=== PATIENT | female | born 1945 | race Caucasian/White ===

== ENCOUNTER 2017-03-13 14:53 | Observation (INO) | payer MEDICARE, BC ==
--- NOTE | 2017-03-13 15:50 | EDM.PDOC ---
ED HPI GENERAL MEDICAL PROBLEM - General Chief Complaint: Cardiovascular Problem Stated Complaint: DIZZINESS,NAUSEA Time Seen by Provider: 03/13/17 15:00 Source of Information: Reports: Patient, Family History Limitations: Reports: No Limitations - History of Present Illness INITIAL COMMENTS - FREE TEXT/NARRATIVE: 71-year-old female who for the past 3 days has had generalized malaise, nausea and dyspnea with activity but no chest pain. She has had some intermittent upper abdominal discomfort. She went into the clinic today because of weakness, dizziness and nausea and was found to be in atrial fibrillation with a rapid ventricular response. She was then sent directly over the emergency room for further evaluation. Interestingly on arrival to the emergency room she was in sinus rhythm with occasional PVCs. She felt mildly dizzy, nauseous, but had no shortness of breath or chest pain. In EKG from the clinic was reviewed and indeed was atrial fibrillation with rapid ventricular response, she has no prior history of atrial fibrillation. Onset: Unknown/Unsure (Symptoms have been waxing and waning for several days) Location: Reports: Abdomen (Some slight upper abdominal discomfort) Severity: Moderate Associated Symptoms: Reports: Malaise, Other (Lightheaded and dizzy) Frontal Headache Pain Score (Numeric/FACES): 1 - Related Data Allergies Allergy/AdvReac Type Severity Reaction Status Date / Time atorvastatin [From Lipitor] Allergy Cannot Verified 03/13/17 15:01 Remember Home Meds: Home Meds Aspirin 81 mg PO DAILY 04/07/15 [History] Cyanocobalamin (Vitamin B-12) [B-12] 1,000 mcg PO DAILY 04/07/15 [History] Ergocalciferol (Vitamin D2) [Vitamin D2] 50,000 unit PO WEEKLY 04/07/15 [History ] Glimepiride [Amaryl] 4 mg PO BID 04/07/15 [History] Lisinopril [Prinivil] 40 mg PO DAILY 04/07/15 [History] Omeprazole [Prilosec] 40 mg PO DAILY 04/07/15 [History] Simvastatin [Zocor] 40 mg PO BEDTIME 04/07/15 [History] amLODIPine Besylate [Norvasc] 2.5 mg PO DAILY 04/07/15 [History] traZODone HCl [Trazodone HCl] 50 mg PO BEDTIME 04/07/15 [History] Levothyroxine 150 mcg PO MOWEFR@0730 03/13/17 [History] Levothyroxine 75 mcg PO SUTUTHSA@0730 03/14/17 [History] cloNIDine HCl [Catapres] 0.1 mg PO BID 03/14/17 [History] metFORMIN [Glucophage] 1,000 mg PO BIDMEALS 03/14/17 [History] metFORMIN [Glucophage] 500 mg PO WITHLUNCH 03/14/17 [History] Past Medical History HEENT History: Reports: Cataract Cardiovascular History: Reports: Hypertension Respiratory History: Reports: Asthma 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: Musculoskeletal History: Reports: Fracture Endocrine/Metabolic History: Reports: Diabetes, Type II, Hypothyroidism - Infectious Disease History Infectious Disease History: Reports: Chicken Pox, Measles, Mumps - Past Surgical History HEENT Surgical History: Reports: Cataract Surgery, Tonsillectomy GI Surgical History: Reports: Appendectomy, Cholecystectomy Social & Family History - Tobacco Use Smoking Status *Q: Never Smoker - Caffeine Use Caffeine Use: Reports: Coffee - Recreational Drug Use Recreational Drug Use: No ED ROS GENERAL - Review of Systems Review Of Systems: See Below Constitutional: Reports: Malaise. Denies: Fever, Chills HEENT: Reports: No Symptoms Respiratory: Denies: Wheezing, Pleuritic Chest Pain Cardiovascular: Reports: Dyspnea on Exertion, Lightheadedness. Denies: Chest Pain GI/Abdominal: Reports: Abdominal Pain (Intermittent mild upper abdominal discomfort is not related to activity or diet) : Reports: No Symptoms Skin: Reports: No Symptoms Neurological: Reports: Dizziness, Weakness. Denies: Headache Psychiatric: Reports: No Symptoms ED EXAM, GENERAL - Physical Exam Exam: See Below Exam Limited By: No Limitations General Appearance: Alert, No Apparent Distress Eye Exam: Bilateral Eye: Normal Inspection Throat/Mouth: Normal Inspection Head: Atraumatic Respiratory/Chest: No Respiratory Distress Cardiovascular: Regular Rate, Rhythm, No Murmur, Extra Beats GI/Abdominal: Soft, Tender (She does react was some discomfort to palpation across the upper abdomen but there is no guarding or focal tenderness) Extremities: Pedal Edema (No significant lower extremity edema) Neurological: Alert, Oriented Skin Exam: Warm, Dry EKG INTERPRETATION Rhythm: NSR QRS: LBBB Course - Vital Signs Last Recorded V/S: Last Vital Signs Temp 97.6 F 03/15/17 07:53 Pulse 80 03/15/17 12:22 Resp 25 H 03/15/17 12:22 BP 136/67 03/15/17 12:22 Pulse Ox 96 03/15/17 12:22 - Orders/Labs/Meds Labs: Laboratory Tests 03/13/17 03/13/17 03/13/17 Range/Units 15:51 15:51 15:51 WBC 9.9 (4.5-11.0) K/uL RBC 5.23 (3.30-5.50) M/uL Hgb 15.1 H (12.0-15.0) g/dL Hct 46.1 (36.0-48.0) % MCV 88 (80-98) fL MCH 29 (27-31) pg MCHC 33 (32-36) % Plt Count 413 H (150-400) K/uL Neut % (Auto) 76 H (36-66) % Lymph % (Auto) 18 L (24-44) % Stark % (Auto) 5 (2-6) % Eos % (Auto) 1 L (2-4) % Baso % (Auto) 0 (0-1) % Sodium 141 (140-148) mmol/L Potassium 3.8 (3.6-5.2) mmol/L Chloride 102 (100-108) mmol/L Carbon Dioxide 24 (21-32) mmol/L Anion Gap 14.8 H (5.0-14.0) mmol/L BUN 9 (7-18) mg/dL Creatinine 0.8 (0.6-1.0) mg/dL Est Cr Clr Drug Dosing 51.75 mL/min Estimated GFR (MDRD) > 60 (>60) Glucose 190 H (74-106) mg/dL Calcium 9.4 (8.5-10.1) mg/dL Total Bilirubin 0.4 (0.2-1.0) mg/dL AST 19 (15-37) U/L ALT 33 (12-78) U/L Alkaline Phosphatase 68 (46-116) U/L Troponin I < 0.017 (0.000-0.056) ng/mL Total Protein 7.2 (6.4-8.2) g/dL Albumin 4.0 (3.4-5.0) g/dL Globulin 3.2 (2.3-3.5) g/dL Albumin/Globulin Ratio 1.3 (1.2-2.2) TSH, Ultra Sensitive 0.711 (0.358-3.740) uIU/mL Meds: Medications Discontinued Medications Generic Name Dose Route Start Last Admin Trade Name Freq PRN Reason Stop Dose Admin Acetaminophen 650 mg 03/13/17 18:05 03/13/17 18:26 Tylenol PO 650 mg Q4H PRN Administration Pain (Mild 1-3)/fever Aspirin 81 mg 03/14/17 09:00 03/15/17 10:49 Aspirin PO 81 mg DAILY CHERELLE Administration Clonidine HCl 0.1 mg 03/14/17 09:00 03/15/17 10:30 Catapres PO 0.1 mg BID CHERELLE Administration Docusate Sodium 100 mg 03/13/17 18:05 Colace PO BID PRN Constipation Enoxaparin Sodium 40 mg 03/13/17 19:00 03/13/17 19:52 Lovenox SUBCUT 40 mg DAILY@1900 CHERELLE Administration Enoxaparin Sodium 40 mg 03/14/17 21:00 03/14/17 21:10 Lovenox SUBCUT 40 mg BEDTIME CHERELLE Administration Glimepiride 6 mg 03/14/17 09:00 Amaryl PO DAILY CHERELLE Sodium Chloride 1,000 mls @ 125 mls/hr 03/13/17 18:05 03/14/17 03:30 Normal Saline IV 125 mls/hr ASDIRECTED CHERELLE Administration Magnesium Sulfate 2 gm/ Premix 50 mls @ 25 mls/hr 03/14/17 10:00 03/14/17 21: 18 IV 03/14/17 23:59 25 mls/hr Q6H CHERELLE Administration Insulin Aspart 0 unit 03/13/17 20:00 03/15/17 13:08 Novolog SUBCUT Not Given QIDACANDBED [facility] Protocol Levothyroxine Sodium 150 mcg 03/15/17 07:30 03/15/17 07:44 Levothyroxine PO 150 mcg MoWeFr@0730 CHERELLE Administration Levothyroxine Sodium 75 mcg 03/14/17 07:30 03/14/17 08:21 Levothyroxine PO 75 mcg SuTuThSa@0730 CHERELLE Administration Magnesium Hydroxide 30 ml 03/13/17 18:05 Milk Of Magnesia PO Q12H PRN Constipation Magnesium Oxide 400 mg 03/14/17 09:00 03/15/17 10:49 Magnesium Oxide PO 400 mg BID CHERELLE Administration Metformin HCl 750 mg 03/13/17 21:00 03/13/17 18:00 Glucophage PO 750 mg TID CHERELLE Administration Ondansetron HCl 4 mg 03/13/17 18:05 Zofran IV Q4H PRN Nausea/Vomiting Oxycodone HCl 5 mg 03/13/17 18:05 Oxycodone PO Q4H PRN Pain (moderate 4-6) Pantoprazole Sodium 40 mg 03/13/17 20:00 03/14/17 08:22 Protonix Iv IVPUSH 40 mg Q12H CHERELLE Administration Glimepiride 4mg ( 0 each 03/14/17 08:00 03/15/17 10:49 Ptom) PO 1 each BIDMEALS CHERELLE Administration Lisinopril 40mg ( 0 each 03/14/17 09:00 03/15/17 10:50 Ptom) PO 1 each DAILY CHERELLE Administration Metformin 1000mg ( 0 each 03/14/17 08:00 03/15/17 10:49 Ptom) PO 1 each DAILY@0800 CHERELLE Administration Metformin 1000mg ( 0 each 03/14/17 12:00 03/14/17 11:55 Ptom) PO 1 each DAILY@1200 CHERELLE Administration Metformin 1000mg ( 0 each 03/14/17 17:00 03/14/17 17:08 Ptom) PO 1 each DAILY@1700 CHERELLE Administration Omeprazole 40mg ( 0 each 03/14/17 16:30 03/15/17 07:44 Ptom) PO 1 each BIDAC CHERELLE Administration Polyethylene Glycol 17 gm 03/13/17 18:05 Miralax PO DAILY PRN Constipation Potassium Chloride 40 meq 03/14/17 09:00 03/14/17 09:45 Klor-Con M20 PO 03/14/17 09:01 40 meq ONETIME ONE Administration Regadenoson 0.4 mg 03/15/17 10:18 03/15/17 10:23 Lexiscan IVPUSH 03/15/17 10:19 0.4 mg ONETIME ONE Administration Simvastatin 40 mg 03/13/17 21:00 03/14/17 21:05 Zocor PO 40 mg BEDTIME CHERELEL Administration Sodium Chloride 10 ml 03/13/17 18:05 Saline Flush FLUSH ASDIRECTED PRN Keep Vein Open Trazodone HCl 50 mg 03/14/17 09:00 Trazodone PO DAILY CHERELLE Trazodone HCl 100 mg 03/13/17 21:00 03/14/17 21:10 Trazodone PO 100 mg BEDTIME CHERELLE Administration - Re-Assessments/Exams Free Text/Narrative Re-Assessment/Exam: 03/13/17 15:48 EKG shows sinus rhythm with occasional PVCs, there appears to be a significant left and right bundle branch block. TSH, CBC, CMP, troponin were obtained and the patient was kept on cardiac monitoring. Portable chest x-ray was obtained. Departure - Departure Time of Disposition: 18:15 Disposition: Admitted As Inpatient 67 Condition: Fair Clinical Impression: Atrial fibrillation Qualifiers: Atrial fibrillation type: paroxysmal Qualified Code(s): I48.0 - Paroxysmal atrial fibrillation Type 2 diabetes mellitus Qualifiers: Diabetes mellitus complication status: without complication
--- NOTE | 2017-03-13 17:48 | PCM.HP ---
H&P History of Present Illness - General Date of Service: 03/13/17 Admit Problem/Dx: Admission Diagnosis/Problem Admission Diagnosis/Problem Paroxysmal atrial fibrillation Source of Information: Patient, Family, Provider, RN Notes Reviewed History Limitations: Reports: No Limitations - History of Present Illness Initial Comments - Free Text/Narative: Ms. Martinez is a 71-year-old woman who is admitted to observation status through the emergency department with symptoms of vertigo, nausea and upper abdominal pain with exertion, and paroxysmal atrial fibrillation. Over the past 3 weeks has been recovering from upper respiratory tract infection. Over the last 3 days has had difficulty with positional vertigo, obvious vertiginous symptoms occurring with head movement. She also was noted pain in her epigastric region and nausea associated with physical exertion. At times over the past few days is noted very rapid irregular heart rhythm. She presented the clinic today for evaluation and was noted to be in atrial fibrillation with rapid ventricular response. EKG also showed underlying right bundle branch block. She was referred to the emergency department and when she arrived here EKG shows normal sinus rhythm. Chest x-ray was unremarkable and labs were found to be unremarkable. She denies any previous history of heart disease, but has several risk factors for coronary artery disease including a positive family history, type 2 diabetes mellitus, hypertension, and hypercholesterolemia. - Related Data Allergies/Adverse Reactions: Allergies Allergy/AdvReac Type Severity Reaction Status Date / Time atorvastatin [From Lipitor] Allergy Cannot Verified 03/13/17 15:01 Remember Home Medications: Home Meds Aspirin 81 mg PO DAILY 04/07/15 [History] Cyanocobalamin (Vitamin B-12) [B-12] 1,000 mcg PO DAILY 04/07/15 [History] Ergocalciferol (Vitamin D2) [Vitamin D2] 50,000 unit PO WEEKLY 04/07/15 [History ] Glimepiride [Amaryl] 6 mg PO ACBREAKFAST 04/07/15 [History] Levothyroxine Sodium [Synthroid] 75 mcg PO ASDIRECTED 04/07/15 [History] Lisinopril [Prinivil] 40 mg PO DAILY 04/07/15 [History] Omeprazole [Prilosec] 40 mg PO DAILY 04/07/15 [History] Simvastatin [Zocor] 40 mg PO DAILY 04/07/15 [History] amLODIPine Besylate [Norvasc] 2.5 mg PO DAILY 04/07/15 [History] metFORMIN HCl [Glucophage] 750 mg PO TID 04/07/15 [History] traZODone HCl [Trazodone HCl] 50 mg PO DAILY 04/07/15 [History] Glimepiride [Amaryl] 2 mg PO DAILY 03/13/17 [History] Levothyroxine 150 mcg PO ASDIRECTED 03/13/17 [History] cloNIDine HCl [Clonidine HCl ER] 0.1 mg PO DAILY 03/13/17 [History] Past Medical History HEENT History: Reports: Cataract Cardiovascular History: Reports: Hypertension Respiratory History: Reports: Asthma 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: Musculoskeletal History: Reports: Fracture Endocrine/Metabolic History: Reports: Diabetes, Type II, Hypothyroidism - Infectious Disease History Infectious Disease History: Reports: Chicken Pox, Measles, Mumps - Past Surgical History HEENT Surgical History: Reports: Cataract Surgery, Tonsillectomy GI Surgical History: Reports: Appendectomy, Cholecystectomy Social & Family History - Tobacco Use Smoking Status *Q: Never Smoker - Caffeine Use Caffeine Use: Reports: Coffee - Recreational Drug Use Recreational Drug Use: No H&P Review of Systems - Review of Systems: Review Of Systems: See Below General: Denies: Fever, Chills, Weakness HEENT: Reports: Vertigo. Denies: Ear Pain, Eye Pain, Headaches, Hearing Changes Pulmonary: Reports: No Symptoms Cardiovascular: Reports: Palpitations, Lightheadedness. Denies: Chest Pain, Dyspnea on Exertion, Orthopnea, PND, Edema Gastrointestinal: Reports: Abdominal Pain, Nausea, Vomiting. Denies: Black Stool, Bloody Stool, Diarrhea, Difficulty Swallowing, Distension, Hematemesis Genitourinary: Reports: No Symptoms Musculoskeletal: Reports: No Symptoms Skin: Reports: No Symptoms Psychiatric: Reports: No Symptoms Neurological: Reports: No Symptoms Hematologic/Lymphatic: Reports: No Symptoms Immunologic: Reports: No Symptoms Exam - Exam Exam: See Below - Vital Signs Vital Signs: Last Vital Signs Temp 98.3 F 03/13/17 15:05 Pulse 77 03/13/17 17:08 Resp 19 03/13/17 17:08 BP 148/63 H 03/13/17 17:08 Pulse Ox 94 L 03/13/17 17:08 Weight: 195 lb - Exam Quality Assessment: DVT Prophylaxis General: Alert, Oriented, Cooperative, Mild Distress HEENT: Conjunctiva Clear, Hearing Intact, Mucosa Moist & [place], Normal Nasal Septum, Posterior Pharynx Clear, Pupils Equal Neck: Supple, Trachea Midline, +2 Carotid Pulse wo Bruit Lungs: Clear to Auscultation, Normal Respiratory Effort Cardiovascular: Regular Rate, Regular Rhythm, Normal S1, Normal S2. No: Systolic Murmur, Diastolic Murmur GI/Abdominal Exam: Soft, No Organomegaly, No Distention, Tender. No: Distended , Guarding, Rigid, Rebound Back Exam: Normal Inspection, Full Range of Motion Extremities: Non-Tender, No Pedal Edema Skin: Warm, Dry, Intact Neurological: Cranial Nerves Intact, Strength Equal Bilateral, Normal Speech, Normal Tone, Sensation Intact. No: Focal Deficit Neuro Extensive - Mental Status: Alert, Oriented x3, Normal Mood/Affect, Normal Cognition, Memory Intact - Patient Data Result Diagrams: 03/13/17 15:51 03/13/17 15:51 *Q Meaningful Use (ADM) - VTE *Q VTE Criteria *Q: - VTE Risk Assess *Q Each Risk Factor Represents 1 Point: Obesity ( BMI > 25 kg/m2) Total Score 1 Point Risk Factors: 1 Each Risk Factor Represents 2 Points: Age 60 - 74 Years Total Score 2 Point Risk Factors: 2 Each Risk Factor Represents 3 Points: None Total Score 3 Point Risk Factors: 0 Each Risk Factor Represents 5 Points: None Total Score 5 Point Risk Factors: 0 Venous Thromboembolism Risk Factor Score *Q: 3 - Stroke *Q Stroke Criteria *Q: - AMI *Q AMI Criteria *Q: Problem List Initiated/Reviewed/Updated: Yes Orders Last 24hrs: Active Orders 24 hr Category Date Time Status Resuscitation Status Routine Resus Stat 03/13/17 17:16 Ordered Assessment/Plan Comment:: ASSESSMENT AND PLAN POSITIONAL VERTIGO-by description symptoms over the past 3 days seem to start with this and she's had ongoing difficulty with vertigo and head movement since that time. -Anti-medic therapy as needed -Physical therapy consult in a.m. EPIGASTRIC ABDOMINAL PAIN AND NAUSEA ASSOCIATED WITH EXERTION-she does have a known history of esophageal reflux as well as a hiatal hernia. Question as to whether current symptoms may represent an anginal equivalent, given association with exertion. She does have several risk factors for coronary artery disease. -Serial troponin levels -Cardiolite study when other medical issues have stabilized -Protonix 40 mg IV every 12 hours PAROXYSMAL ATRIAL FIBRILLATION-symptoms of rapid heart rate over the past 3 days , EKG in the clinic documented atrial fibrillation with rapid ventricular response. 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 -Cardiac monitoring -Rate slowing medication if she has recurrent episode -Echocardiogram, will need to be obtained as an outpatient and is not available for 4 days -Consider anticoagulation TYPE 2 DIABETES MELLITUS -4 times a day glucometers -Continue outpatient medical regimen -Low-dose sliding scale NovoLog MAINTENANCE ISSUES -DVT prophylaxis; Lovenox 40 mg subcutaneous daily -GI prophylaxis; Protonix as above -Bradley catheter; not indicated -Nutrition; consistent carb diet -Nicotine dependence; not required CODE STATUS-FULL CODE ADMISSION STATUS-this patient will be admitted to observation status, expect no more than a one night hospital stay for evaluation and management of problems as outlined above. DISPOSITION-anticipate discharge to home after the hospital stay. PRIMARY CARE PROVIDER-
[2017-03-13] MEDS ORDERED: Ondansetron 4 MG/2 ML SDV IV PRN (18:05)
[2017-03-13] MEDS ORDERED: Magnesium Hydroxide 400 MG/5 ML Susp 30 ML Cup PO PRN (18:05)
[2017-03-13] MEDS ORDERED: oxyCODONE 5 MG Tab PO PRN (18:05)
[2017-03-13] MEDS ORDERED: Polyethylene Glycol 3350 Powder 17 GM Packet PO PRN (18:05)
[2017-03-13] MEDS ORDERED: Acetaminophen 325 MG Tab PO PRN (18:05)
[2017-03-13] MEDS ORDERED: Docusate Sodium 100 MG Cap PO PRN (18:05)
[2017-03-13] MEDS ORDERED: Sodium Chloride 0.9% 10 ML Syringe FLUSH PRN (18:05)
[2017-03-13] MEDS: Sodium Chloride 0.9% 1,000 ML IV SCH (18:26)
[2017-03-13] MEDS ORDERED: Enoxaparin 40 MG/0.4 ML Syringe SUBCUT SCH (19:00)
[2017-03-13] MEDS: Insulin Aspart 100 Units/ML 3 ML Pen SUBCUT SCH (19:49)
[2017-03-13] MEDS: Pantoprazole 40 MG Vial IVPUSH SCH (19:53)
[2017-03-13] MEDS ORDERED: metFORMIN 500 MG Tab PO SCH (21:00)
[2017-03-13] MEDS: traZODone 50 MG Tab (PTOM) PO SCH (22:06)
[2017-03-13] MEDS: Simvastatin 20 MG Tab (PTOM) PO SCH (22:06)
[2017-03-14] MEDS: Sodium Chloride 0.9% 1,000 ML IV SCH (03:30)
[2017-03-14] MEDS ORDERED: Levothyroxine 75 MCG Tab PO SCH (07:30)
[2017-03-14] MEDS ORDERED: LEVOTHYROXINE 75 MCG PO SCH (07:30)
[2017-03-14] MEDS ORDERED: Glimepiride 2 MG Tab PO SCH ×2 (08:00→09:00)
[2017-03-14] MEDS: Insulin Aspart 100 Units/ML 3 ML Pen SUBCUT SCH ×4 (08:20→21:16)
[2017-03-14] MEDS: Pantoprazole 40 MG Vial IVPUSH SCH (08:22)
[2017-03-14] MEDS: Aspirin 81 MG Tab.Chew PO SCH (08:22)
[2017-03-14] MEDS: METFORMIN 1000 MG PO SCH (08:23)
[2017-03-14] MEDS: GLIMEPIRIDE 4 MG PO SCH ×2 (08:24→17:07)
[2017-03-14] MEDS ORDERED: traZODone 50 MG Tab PO SCH (09:00)
[2017-03-14] MEDS ORDERED: Lisinopril 20 MG Tab PO SCH (09:00)
[2017-03-14] MEDS ORDERED: Potassium Chloride 20 MEQ Tab.ER PO ONE (09:00)
--- NOTE | 2017-03-14 09:18 | CR ---
Chest 1V Frontal HISTORY: Weakness, palpitations. Comparison: None. FINDINGS: Cardiac size and pulmonary vessels are normal. Moderate sized hiatal hernia. No effusions. The lungs are clear. IMPRESSION: Negative AP chest.
--- NOTE | 2017-03-14 09:19 | PCM.PN ---
- General Info Date of Service: 03/14/17 Subjective Update: Ms. Martinez has improved since admission with resolution of vertigo and no further symptoms of nausea and vomiting. Serial troponin levels have been within normal range and she denies any further epigastric pain. Vital signs have been stable and she has remained afebrile. She has had no recurrence of the atrial fibrillation since admission. Functional Status: Reports: Pain Controlled, Tolerating Diet, Urinating - Review of Systems General: Denies: Fever, Weakness, Chills Cardiovascular: Reports: No Symptoms Gastrointestinal: Reports: No Symptoms Genitourinary: Reports: No Symptoms - Patient Data Vitals - Most Recent: Last Vital Signs Temp 97.7 F 03/14/17 08:53 Pulse 73 03/14/17 08:53 Resp 20 03/14/17 08:53 BP 151/67 H 03/14/17 08:53 Pulse Ox 93 L 03/14/17 08:53 Weight - Most Recent: 188 lb 11.2 oz I&O - Last 24 Hours: Intake & Output 03/13/17 03/14/17 03/14/17 22:59 06:59 14:59 Intake Total 1463 Output Total 250 Balance -250 1463 Lab Results Last 24 Hours: Laboratory Results - last 24 hr 03/13/17 03/14/17 Range/Units 21:47 05:11 Sodium 143 (140-148) mmol/L Potassium 3.5 L (3.6-5.2) mmol/L Chloride 108 (100-108) mmol/L Carbon Dioxide 26 (21-32) mmol/L Anion Gap 12.5 (5.0-14.0) mmol/L BUN 8 (7-18) mg/dL Creatinine 0.7 (0.6-1.0) mg/dL Est Cr Clr Drug Dosing 59.15 mL/min Estimated GFR (MDRD) > 60 (>60) Glucose 143 H (74-106) mg/dL Calcium 8.4 L (8.5-10.1) mg/dL Magnesium 1.4 L (1.8-2.4) mg/dL Troponin I < 0.017 < 0.017 (0.000-0.056) ng/mL Med Orders - Current: Current Medications Acetaminophen (Tylenol) 650 mg PO Q4H PRN PRN Reason: Pain (Mild 1-3)/fever Last Admin: 03/13/17 18:26 Dose: 650 mg Aspirin (Aspirin) 81 mg PO DAILY [facility] Last Admin: 03/14/17 08:22 Dose: 81 mg Clonidine HCl (Catapres) 0.1 mg PO BID [facility] Docusate Sodium (Colace) 100 mg PO BID PRN PRN Reason: Constipation Enoxaparin Sodium (Lovenox) 40 mg SUBCUT BEDTIME [facility] Magnesium Sulfate 2 gm/ Premix 50 mls @ 25 mls/hr IV Q6H [facility] Stop: 03/14/17 23:59 Insulin Aspart (Novolog) 0 unit SUBCUT QIDACANDBED [facility] PRN Reason: Protocol Last Admin: 03/14/17 08:20 Dose: Not Given Levothyroxine Sodium (Levothyroxine) 150 mcg PO MoWeFr@0730 [facility] Levothyroxine Sodium (Levothyroxine) 75 mcg PO SuTuThSa@0730 [facility] Last Admin: 03/14/17 08:21 Dose: 75 mcg Magnesium Hydroxide (Milk Of Magnesia) 30 ml PO Q12H PRN PRN Reason: Constipation Magnesium Oxide (Magnesium Oxide) 400 mg PO BID [facility] Ondansetron HCl (Zofran) 4 mg IV Q4H PRN PRN Reason: Nausea/Vomiting Oxycodone HCl (Oxycodone) 5 mg PO Q4H PRN PRN Reason: Pain (moderate 4-6) Pantoprazole Sodium (Protonix Iv) 40 mg IVPUSH Q12H [facility] Last Admin: 03/14/17 08:22 Dose: 40 mg Glimepiride 4mg ( (Ptom)) 0 each PO BIDMEALS [facility] Last Admin: 03/14/17 08:24 Dose: 1 each Lisinopril 40mg ( (Ptom)) 0 each PO DAILY [facility] Metformin 1000mg ( (Ptom)) 0 each PO DAILY@0800 [facility] Last Admin: 03/14/17 08:23 Dose: 1 each Metformin 1000mg ( (Ptom)) 0 each PO DAILY@1200 [facility] Metformin 1000mg ( (Ptom)) 0 each PO DAILY@1700 [facility] Polyethylene Glycol (Miralax) 17 gm PO DAILY PRN PRN Reason: Constipation Simvastatin (Zocor) 40 mg PO BEDTIME [facility] Last Admin: 03/13/17 22:06 Dose: 40 mg Sodium Chloride (Saline Flush) 10 ml FLUSH ASDIRECTED PRN PRN Reason: Keep Vein Open Trazodone HCl (Trazodone) 100 mg PO BEDTIME [facility] Last Admin: 03/13/17 22:06 Dose: 100 mg Discontinued Medications Enoxaparin Sodium (Lovenox) 40 mg SUBCUT DAILY@1900 [facility] Last Admin: 03/13/17 19:52 Dose: 40 mg Glimepiride (Amaryl) 6 mg PO DAILY [facility] Sodium Chloride (Normal Saline) 1,000 mls @ 125 mls/hr IV ASDIRECTED [facility] Last Admin: 03/14/17 03:30 Dose: 125 mls/hr Metformin HCl (Glucophage) 750 mg PO TID [facility] Last Admin: 03/13/17 18:00 Dose: 750 mg Potassium Chloride (Klor-Con M20) 40 meq PO ONETIME ONE Stop: 03/14/17 09:01 Trazodone HCl (Trazodone) 50 mg PO DAILY [facility] - Exam Quality Assessment: DVT Prophylaxis General: Alert, Oriented, Cooperative, No Acute Distress Lungs: Clear to Auscultation, Normal Respiratory Effort Cardiovascular: Regular Rate, Regular Rhythm, No Murmurs GI/Abdominal Exam: Normal Bowel Sounds, Soft, Non-Tender, No Organomegaly Extremities: Non-Tender, No Pedal Edema Skin: Warm, Dry - Problem List Review Problem List Initiated/Reviewed/Updated: Yes - My Orders Last 24 Hours: My Active Orders 03/13/17 17:16 Resuscitation Status Routine 03/13/17 18:05 Patient Status [ADT] Routine Ambulate [RC] QID Cardiac Monitoring [RC] Q6HR Height and Weight [RC] 0511 Intake and Output [RC] QSHIFT Notify Provider Vital Signs [RC] ASDIRECTED Peripheral IV Care [RC] Q8H Up With Assistance [RC] ASDIRECTED Up to Chair [RC] QID VTE/DVT Education [RC] Per Unit Routine PT Evaluation and Treatment [CONS] Routine Acetaminophen [Tylenol] 650 mg PO Q4H PRN Docusate Sodium [Colace] 100 mg PO BID PRN Magnesium Hydroxide [Milk of Magnesia] 30 ml PO Q12H PRN Ondansetron [Zofran] 4 mg IV Q4H PRN Polyethylene Glycol 3350 [MiraLAX] 17 gm PO DAILY PRN Sodium Chloride 0.9% [Saline Flush] 10 ml FLUSH ASDIRECTED PRN oxyCODONE 5 mg PO Q4H PRN Peripheral IV Insertion Adult [OM.PC] Routine 03/13/17 20:00 Insulin Aspart [NovoLOG] See Protocol SUBCUT QIDACANDBED Pantoprazole [ProTONIX IV] 40 mg IVPUSH Q12H 03/13/17 21:00 traZODone 100 mg PO BEDTIME 03/13/17 Dinner Regular Diet [DIET] 03/14/17 07:30 Levothyroxine 75 mcg PO SuTuThSa@0730 03/14/17 08:00 Patient's Own Medication [Ptom] 0 each PO BIDMEALS Patient's Own Medication [Ptom] 0 each PO DAILY@0800 03/14/17 09:00 Magnesium Oxide 400 mg PO BID Patient's Own Medication [Ptom] 0 each PO DAILY 03/14/17 09:11 Convert IV to Saline Lock [OM.PC] Routine 03/14/17 10:00 Magnesium Sulfate/Water [Magnesium Sulfate 2 GM in Water 50 ML] 2 gm Premix Bag 1 bag IV Q6H 03/14/17 12:00 Patient's Own Medication [Ptom] 0 each PO DAILY@1200 03/14/17 17:00 Patient's Own Medication [Ptom] 0 each PO DAILY@1700 03/14/17 21:00 Enoxaparin [Lovenox] 40 mg SUBCUT BEDTIME 03/15/17 05:00 BASIC METABOLIC PANEL,BMP [CHEM] Timed MAGNESIUM [CHEM] Timed 03/15/17 07:30 Levothyroxine 150 mcg PO MoWeFr@0730 03/15/17 08:00 Myocardial Perf Spect Multi [NM] Urgent - Plan Plan:: ASSESSMENT AND PLAN POSITIONAL VERTIGO- she denies any symptoms of vertigo this morning -Anti-emetic therapy as needed -Physical therapy consult in a.m. EPIGASTRIC ABDOMINAL PAIN AND NAUSEA ASSOCIATED WITH EXERTION-no further symptoms of pain or nausea since admission, serial troponin levels within normal range -Cardiolite study in a.m. -Protonix 40 mg po every 12 hours PAROXYSMAL ATRIAL FIBRILLATION-no recurrence of atrial fibrillation since admission -Cardiac monitoring -Rate slowing medication if she has recurrent episode -Echocardiogram, will need to be obtained as an outpatient and is not available for 4 days -Consider anticoagulation TYPE 2 DIABETES MELLITUS -4 times a day glucometers -Continue outpatient medical regimen -Low-dose sliding scale NovoLog MAINTENANCE ISSUES -DVT prophylaxis; Lovenox 40 mg subcutaneous daily -GI prophylaxis; Protonix as above -Bradley catheter; not indicated -Nutrition; consistent carb diet -Nicotine dependence; not required CODE STATUS-FULL CODE ADMISSION STATUS-this patient will be admitted to observation status, expect no more than a one night hospital stay for evaluation and management of problems as outlined above. DISPOSITION-anticipate discharge to home after the hospital stay. PRIMARY CARE PROVIDER-
[2017-03-14] MEDS: Magnesium Oxide 400 MG Tab PO SCH ×2 (09:45→21:09)
[2017-03-14] MEDS: LISINOPRIL 40MG (PTOM) PO SCH (09:45)
[2017-03-14] MEDS: CLONIDINE 0.1 MG PO SCH ×2 (09:45→21:05)
[2017-03-14] MEDS: Magnesium Sulfate/Water 2 GM in Premix Bag 1 BAG IV SCH ×3 (09:46→21:18)
[2017-03-14] MEDS ORDERED: METFORMIN 1000 MG PO SCH ×2 (12:00→17:00)
[2017-03-14] MEDS: OMEPRAZOLE 40MG (PTOM) PO SCH (15:51)
[2017-03-14] MEDS ORDERED: Pantoprazole 40 MG Tab.CR PO SCH (16:30)
[2017-03-14] MEDS ORDERED: Enoxaparin 40 MG/0.4 ML Syringe SUBCUT SCH (21:00)
[2017-03-14] MEDS: Simvastatin 20 MG Tab (PTOM) PO SCH (21:05)
[2017-03-14] MEDS: traZODone 50 MG Tab (PTOM) PO SCH (21:10)
[2017-03-15] MEDS ORDERED: Levothyroxine 75 MCG Tab PO SCH (07:30)
[2017-03-15] MEDS ORDERED: LEVOTHYROXINE 75 MCG PO SCH (07:30)
[2017-03-15] MEDS: OMEPRAZOLE 40MG (PTOM) PO SCH (07:44)
[2017-03-15] MEDS: Insulin Aspart 100 Units/ML 3 ML Pen SUBCUT SCH ×2 (07:51→13:08)
[2017-03-15] MEDS: CLONIDINE 0.1 MG PO SCH (10:30)
[2017-03-15] MEDS: GLIMEPIRIDE 4 MG PO SCH (10:49)
[2017-03-15] MEDS: Aspirin 81 MG Tab.Chew PO SCH (10:49)
[2017-03-15] MEDS: METFORMIN 1000 MG PO SCH (10:49)
[2017-03-15] MEDS: Magnesium Oxide 400 MG Tab PO SCH (10:49)
[2017-03-15] MEDS: LISINOPRIL 40MG (PTOM) PO SCH (10:50)
--- NOTE | 2017-03-15 12:21 | NM ---
Myocardial Perf Spect Multi HISTORY: Chest pain. Technique: 11.35 mCi of technetium 99 Myoview was administered and resting Mello perfusion scan was obtained. Patient was then exercised on the treadmill to a maximum predicted heart rate of 81% and r eadministered 29.5 mCi of technetium 99 Myoview and a exercise stress myocardial perfusion scan was o btained. COMPARISON: None FINDINGS: On the resting images there is some bowel activity adjacent to the inferior wall compatible with attenuation artifact. No strong findings to suggest acute ischemia. The gated portion of today' s study demonstrates ejection fraction of 70% with stress and 54% with rest. No hypokinesis or dyskin esis seen. Impression: 1. Attenuation artifact along the margin of the inferior wall on the resting images due to bowel acti vity. No findings to suggest infarct or ischemia. 2. Normal ejection fraction and wall motion.
--- NOTE | 2017-03-15 12:48 | PCM.DCSUM1 ---
Discharge Summary - Hospital Course Brief History: Ms. Martinez is a 71-year-old woman who was admitted to observation status through the emergency department for further evaluation and management of paroxysmal atrial fibrillation, nausea and vomiting, benign positional vertigo, and epigastric abdominal pain associated with exertion. - Discharge Data Discharge Date: 03/15/17 Discharge Disposition: Home, Self-Care 01 Condition: Good - Discharge Diagnosis/Problem(s) (1) Paroxysmal atrial fibrillation SNOMED Code(s): 574730544 ICD Code: I48.0 - PAROXYSMAL ATRIAL FIBRILLATION Status: Acute Current Visit: Yes (2) Benign positional vertigo SNOMED Code(s): 799265461 ICD Code: H81.10 - BENIGN PAROXYSMAL VERTIGO, UNSPECIFIED EAR Status: Acute Current Visit: Yes (3) Nausea and vomiting SNOMED Code(s): 66312739 ICD Code: R11.2 - NAUSEA WITH VOMITING, UNSPECIFIED Status: Acute Current Visit: Yes (4) KELLY on CPAP SNOMED Code(s): 05524274 ICD Code: G47.33 - OBSTRUCTIVE SLEEP APNEA (ADULT) (PEDIATRIC); 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 PT Reason for Consult: Positional vertigo This query below is only for informational purposes and is not editable. Hospital Course: Ms. Martinez is a 71-year-old woman that had a 2 to three-day history of vertigo associated with head movement, nausea and vomiting, epigastric abdominal pain associated with activity and resolving with rest. She been seen and evaluated in clinic and was noted to be tachycardic, EKG showed evidence of atrial fibrillation with rapid ventricular response. She was referred to the emergency department for further evaluation and management. When she arrived in the emergency department sheet converted to sinus rhythm and remained in sinus rhythm throughout the duration of her hospital stay. EKG showed no acute ST segment changes and initial troponin level was within normal range as was a TSH. She received antiemetic therapy and IV fluids for hydration. She was admitted to observation status, serial troponin levels were within normal range. She was seen and evaluated on the day after admission by physical therapy for assessment of her vestibular status, by that time symptoms had resolved. On the day of discharge exercise Cardiolite study was obtained which showed no evidence of ischemia or reproduction of symptoms. She will be discharged to home, activity will be as tolerated and she will resume her usual diabetic diet. Glucose levels were monitored throughout her hospital stay and she did receive supplemental NovoLog for management of hyperglycemia as well as her usual oral hypoglycemic agents. Follow-up appointment will be scheduled with her primary care provider within one week. Echocardiogram will be scheduled as an outpatient for March 18. - Patient Instructions Diet: Diabetic Diet Activity: As Tolerated Other/Special Instructions: Please schedule follow-up appointment with primary care provider within one week. - Discharge Plan Home Medications: Home Meds Aspirin 81 mg PO DAILY 04/07/15 [History] Cyanocobalamin (Vitamin B-12) [B-12] 1,000 mcg PO DAILY 04/07/15 [History] Ergocalciferol (Vitamin D2) [Vitamin D2] 50,000 unit PO WEEKLY 04/07/15 [History ] Glimepiride [Amaryl] 4 mg PO BID 04/07/15 [History] Lisinopril [Prinivil] 40 mg PO DAILY 04/07/15 [History] Omeprazole [Prilosec] 40 mg PO DAILY 04/07/15 [History] Simvastatin [Zocor] 40 mg PO BEDTIME 04/07/15 [History] amLODIPine Besylate [Norvasc] 2.5 mg PO DAILY 04/07/15 [History] traZODone HCl [Trazodone HCl] 50 mg PO BEDTIME 04/07/15 [History] Levothyroxine 150 mcg PO MOWEFR@72903/13/17 [History] Levothyroxine 75 mcg PO SUTUTHSA@72903/14/17 [History] cloNIDine HCl [Catapres] 0.1 mg PO BID 03/14/17 [History] metFORMIN [Glucophage] 1,000 mg PO BIDMEALS 03/14/17 [History] metFORMIN [Glucophage] 500 mg PO WITHLUNCH 03/14/17 [History] Forms: ED Department Discharge Referrals: PCP,None [Primary Care Provider] - - Patient Data Vitals - Most Recent: Last Vital Signs Temp 97.6 F 03/15/17 07:53 Pulse 80 03/15/17 12:22 Resp 25 H 03/15/17 12:22 BP 136/67 03/15/17 12:22 Pulse Ox 96 03/15/17 12:22 Weight - Most Recent: 186 lb 3.2 oz I&O - Last 24 hours: Intake & Output 03/14/17 03/15/17 03/15/17 22:59 06:59 14:59 Intake Total 150 170 Output Total 700 1500 400 Balance -550 -1330 -400 Lab Results - Last 24 hrs: Laboratory Results - last 24 hr 03/15/17 Range/Units 05:50 Sodium 144 (140-148) mmol/L Potassium 3.8 (3.6-5.2) mmol/L Chloride 108 (100-108) mmol/L Carbon Dioxide 27 (21-32) mmol/L Anion Gap 8.8 (5.0-14.0) mmol/L BUN 9 (7-18) mg/dL Creatinine 0.7 (0.6-1.0) mg/dL Est Cr Clr Drug Dosing 58.63 mL/min Estimated GFR (MDRD) > 60 (>60) Glucose 132 H (74-106) mg/dL Calcium 8.5 (8.5-10.1) mg/dL Magnesium 2.1 D (1.8-2.4) mg/dL Med Orders - Current: Current Medications Acetaminophen (Tylenol) 650 mg PO Q4H PRN PRN Reason: Pain (Mild 1-3)/fever Last Admin: 03/13/17 18:26 Dose: 650 mg Aspirin (Aspirin) 81 mg PO DAILY [facility] Last Admin: 03/15/17 10:49 Dose: 81 mg Clonidine HCl (Catapres) 0.1 mg PO BID [facility] Last Admin: 03/14/17 21:05 Dose: 0.1 mg Docusate Sodium (Colace) 100 mg PO BID PRN PRN Reason: Constipation Enoxaparin Sodium (Lovenox) 40 mg SUBCUT BEDTIME [facility] Last Admin: 03/14/17 21:10 Dose: 40 mg Insulin Aspart (Novolog) 0 unit SUBCUT QIDACANDBED [facility] PRN Reason: Protocol Last Admin: 03/15/17 07:51 Dose: Not Given Levothyroxine Sodium (Levothyroxine) 150 mcg PO MoWeFr@729 [facility] Last Admin: 03/15/17 07:44 Dose: 150 mcg Levothyroxine Sodium (Levothyroxine) 75 mcg PO SuTuThSa@0730 [facility] Last Admin: 03/14/17 08:21 Dose: 75 mcg Magnesium Hydroxide (Milk Of Magnesia) 30 ml PO Q12H PRN PRN Reason: Constipation Magnesium Oxide (Magnesium Oxide) 400 mg PO BID [facility] Last Admin: 03/15/17 10:49 Dose: 400 mg Ondansetron HCl (Zofran) 4 mg IV Q4H PRN PRN Reason: Nausea/Vomiting Oxycodone HCl (Oxycodone) 5 mg PO Q4H PRN PRN Reason: Pain (moderate 4-6) Glimepiride 4mg ( (Ptom)) 0 each PO BIDMEALS [facility] Last Admin: 03/15/17 10:49 Dose: 1 each Lisinopril 40mg ( (Ptom)) 0 each PO DAILY [facility] Last Admin: 03/15/17 10:50 Dose: 1 each Metformin 1000mg ( (Ptom)) 0 each PO DAILY@0800 [facility] Last Admin: 03/15/17 10:49 Dose: 1 each Metformin 1000mg ( (Ptom)) 0 each PO DAILY@1200 [facility] Last Admin: 03/14/17 11:55 Dose: 1 each Metformin 1000mg ( (Ptom)) 0 each PO DAILY@1700 [facility] Last Admin: 03/14/17 17:08 Dose: 1 each Omeprazole 40mg ( (Ptom)) 0 each PO BIDAC [facility] Last Admin: 03/15/17 07:44 Dose: 1 each Polyethylene Glycol (Miralax) 17 gm PO DAILY PRN PRN Reason: Constipation Simvastatin (Zocor) 40 mg PO BEDTIME [facility] Last Admin: 03/14/17 21:05 Dose: 40 mg Sodium Chloride (Saline Flush) 10 ml FLUSH ASDIRECTED PRN PRN Reason: Keep Vein Open Trazodone HCl (Trazodone) 100 mg PO BEDTIME [facility] Last Admin: 03/14/17 21:10 Dose: 100 mg Discontinued Medications Enoxaparin Sodium (Lovenox) 40 mg SUBCUT DAILY@1900 [facility] Last Admin: 03/13/17 19:52 Dose: 40 mg Glimepiride (Amaryl) 6 mg PO DAILY [facility] Sodium Chloride (Normal Saline) 1,000 mls @ 125 mls/hr IV ASDIRECTED [facility] Last Admin: 03/14/17 03:30 Dose: 125 mls/hr Magnesium Sulfate 2 gm/ Premix 50 mls @ 25 mls/hr IV Q6H [facility] Stop: 03/14/17 23:59 Last Admin: 03/14/17 21:18 Dose: 25 mls/hr Metformin HCl (Glucophage) 750 mg PO TID [facility] Last Admin: 03/13/17 18:00 Dose: 750 mg Pantoprazole Sodium (Protonix Iv) 40 mg IVPUSH Q12H [facility] Last Admin: 03/14/17 08:22 Dose: 40 mg Potassium Chloride (Klor-Con M20) 40 meq PO ONETIME ONE Stop: 03/14/17 09:01 Last Admin: 03/14/17 09:45 Dose: 40 meq Regadenoson (Lexiscan) 0.4 mg IVPUSH ONETIME ONE Stop: 03/15/17 10:19 Last Admin: 03/15/17 10:23 Dose: 0.4 mg Trazodone HCl (Trazodone) 50 mg PO DAILY [facility] *Q Meaningful Use (DIS) - VTE *Q VTE Criteria *Q: - Stroke *Q Stroke Criteria *Q: - AMI *Q AMI Criteria *Q:
--- NOTE | 2017-03-18 13:13 | STRESS ---
DATE OF SERVICE: 03/15/2017 PROCEDURE: Lexiscan Cardiolite study. TECHNIQUE: Ms. Martinez had originally been scheduled for exercise Cardiolite study, but she was unable to exercise adequately for the test, so the study was converted to a Lexiscan study. She received the usual infusion of Lexiscan and then the Cardiolite injection. She did experience symptoms of shortness of breath following Lexiscan infusion. Symptoms resolved with use of supplemental oxygen. She had no symptoms of chest pain or pressure, but did experience some nausea and slight headache. Symptoms resolved spontaneously after the study was completed, and she did not require use of reversal medication. Resting ECG, sinus rhythm, rate of 71. There is borderline right axis deviation, prolongation of the QRS interval, and pattern consistent with a right bundle branch block. Similar findings were noted on the post-hyperventilation and standing ECGs. There were no significant ST-segment changes, T-wave abnormalities seen with Lexiscan infusion or during the post infusion. She did develop symptoms as reported above. No dysrhythmias were noted during the monitoring. IMPRESSION: Unremarkable Lexiscan portion of the Lexiscan Cardiolite study. Gabriel Cheung MD /[id number]
== END 2017-03-15 13:58 | disposition home or self-care (01) ==
LOC: JP.ED 14:53 → JP.ICU 17:10
PROVIDERS: ADMIT Hospitalist; ATTEND Hospitalist
DX: I48.0 Paroxysmal atrial fibrillation (principal); H81.10 Benign paroxysmal vertigo, unspecified ear; R11.2 Nausea with vomiting, unspecified; G47.33 Obstructive sleep apnea (adult) (pediatric); E11.9 Type 2 diabetes mellitus without complications; I10 Essential (primary) hypertension; J45.909 Unspecified asthma, uncomplicated; E03.9 Hypothyroidism, unspecified; R07.89 Other chest pain; Z79.82 Long term (current) use of aspirin; Z79.84 Long term (current) use of oral hypoglycemic drugs; Z99.89 Dependence on other enabling machines and devices; Z79.899 Other long term (current) drug therapy; Z88.8 Allergy status to other drugs, medicaments and biological substances
CPT/HCPCS: 36415; 71045; 78452; 80048; 80053; 82962; 83735; 84443; 84484; 85025; 93005; 93017; 97112; 97162; 99285; A9270; A9500; C9113; J1650; J2785; J3475; J7040; 93010; 93018; 96361; 96365; 96366; 96372; 96375; 96376; 99217; 99219; 99224; 99284; G0378; J7030

== ENCOUNTER 2022-05-17 19:16 | Emergency (ER) | payer MEDICARE | END 2022-05-17 21:40 | disposition home or self-care (01) | LOC: JP.ED 19:16 | DX: S86.912A Strain of unspecified muscle(s) and tendon(s) at lower leg level, left leg, initial encounter (principal); S30.0XXA Contusion of lower back and pelvis, initial encounter; I10 Essential (primary) hypertension; J45.909 Unspecified asthma, uncomplicated; E11.9 Type 2 diabetes mellitus without complications; E03.9 Hypothyroidism, unspecified; Z79.84 Long term (current) use of oral hypoglycemic drugs; Z79.899 Other long term (current) drug therapy; Z88.8 Allergy status to other drugs, medicaments and biological substances; Z79.82 Long term (current) use of aspirin; W18.09XA Striking against other object with subsequent fall, initial encounter | CPT/HCPCS: 70450; 72192; 73562-26-LT; 73562-LT; 99283; 99284 ==

== ENCOUNTER 2025-01-23 09:44 | Emergency (ER) | payer MEDICARE ==
[2025-01-23 10:04] LABS: BASE EXCESS VENOUS 0.2 mm/L; BICARBONATE,VENOUS 25.1 mmol/L; O2 SATURATION VENOUS 50.7; OXYHEMOGLOBIN 49.6 %; PCO2 VENOUS 44.6 mm/Hg; PH,VENOUS 7.370 (7.350-7.450); TOTAL HEMOGLOBIN 11.2 g/dL (12.0-16.0)
[2025-01-23 10:05] LABS: BASOPHILS ABSOLUTE AUTO 0.09 K/uL (0.00-0.10); BASOPHILS PERCENT AUTO 1.2 % (0.1-1.3); EOSINOPHILS ABSOLUTE AUTO 0.70 K/uL (0.00-0.40); EOSINOPHILS PERCENT AUTO 9.1 % (0.0-5.4); IMMATURE GRAN ABSOLUTE AUTO 0.05 K/uL (0.00-0.23); IMMATURE GRAN PERCENT AUTO 0.6 % (0.0-0.7); LYMPHOCYTES ABSOLUTE AUTO 1.52 K/uL (0.8-3.3); LYMPHOCYTES PERCENT AUTO 19.7 % (11.4-47.7); MONOCYTES ABSOLUTE AUTO 0.57 K/uL (0.20-0.90); MONOCYTES PERCENT AUTO 7.4 % (3.3-12.6); NEUTROPHILS ABSOLUTE AUTO 4.78 K/uL (1.0-7.6); NEUTROPHILS PERCENT AUTO 62.0 % (40.0-78.1); PLATELET COUNT,PLT 451 K/uL (130-375); RED BLOOD CELL COUNT 3.65 M/uL (3.77-5.24); WHITE BLOOD CELL COUNT,WBC 7.7 K/uL (3.2-11.0)
[2025-01-23 10:06] LABS: PO2 VENOUS 33.4 mm/Hg
[2025-01-23] MEDS: Diltiazem 25 MG/5 ML SDV IVPUSH ONE (10:15)
[2025-01-23 10:25] LABS: INR 1.1
[2025-01-23 10:35] LABS: A/G RATIO 1.3 (1.2-2.2); ALANINE AMINOTRANSFERASE,ALT 21 U/L (12-78); ASPARTATE AMNIOTRANSFERASE,AST 12 U/L (15-37); BILIRUBIN TOTAL 0.4 mg/dL (0.2-1.0); BLOOD UREA NITROGEN,BUN 11 mg/dL (7-18); CARBON DIOXIDE,CO2 26 mmol/L (21-32); CHLORIDE,CL 98 mmol/L (100-108); CREATININE 1.1 mg/dL (0.6-1.0); EST CRCL DRUG DOSING (CG) 34.87 mL/min; ESTIMATED GFR 51 mL/min (>60); GLUCOSE RANDOM 283 mg/dL (74-106); POTASSIUM,K 3.4 mmol/L (3.6-5.2); PRO B-TYPE NATRIUR PEPT,BNPPRO 1896 pg/mL (5-450); PROTEIN TOTAL,TP 6.8 g/dL (6.4-8.2); SODIUM,NA 137 mmol/L (140-148)
[2025-01-23 10:40] LABS: TROPONIN I HIGH SENSITIVITY 6.1 pg/mL (<=60.3); TSH ULTRASENSITIVE 2.391 uIU/mL (0.358-3.740)
== END 2025-01-23 12:11 | disposition home or self-care (01) ==
LOC: JP.ED 09:44
DX: I48.91 Unspecified atrial fibrillation (principal); I10 Essential (primary) hypertension; E11.9 Type 2 diabetes mellitus without complications; E03.9 Hypothyroidism, unspecified; J45.909 Unspecified asthma, uncomplicated; Z79.899 Other long term (current) drug therapy; Z88.8 Allergy status to other drugs, medicaments and biological substances; Z79.01 Long term (current) use of anticoagulants; Z79.890 Hormone replacement therapy; Z90.49 Acquired absence of other specified parts of digestive tract; Z90.710 Acquired absence of both cervix and uterus
CPT/HCPCS: 36415; 71045; 80053; 82803; 83735; 83880; 84443; 84484; 85025; 85379; 85610; 93005; 96361; 96374; 99285; J1163; J7030